=== PATIENT | female | born 1990 | race Caucasian/White ===

== ENCOUNTER 2025-02-10 13:14 | Outpatient (AMB) | payer MEDICAID, SELFPAY ==
[2025-02-10 13:39] VITALS: BP 111/70; PULSE 84; RESP 18; TEMP 36.6; O2SAT 98
--- NOTE | 2025-02-10 13:39 | OBCLNT_ITS ---
Vital Signs 02/10/25 13:39 Weight 59.08 kg Weight Measurement Method Standing Scale BP 111/70 Blood Pressure Source Automatic Cuff Blood Pressure Location Left Upper Arm Position Sitting Respiration 18 Pulse 84 Pulse Source Monitor Temp 97.8 F Temp Source Temporal Artery Scan Pulse Oximetry (%) 98 Oxygen Delivery Method Room Air Allergies/Home Meds Allergies & Medications Allergies No Known Allergies Allergy (Verified 02/10/25 13:40) Medication Reconciliation vits no.126-ferrous fum 28 mg iron-folic acid 800 mcg tablet (Classic ) tab PO 02/10/25 [History Confirmed 02/10/25] Intake Visit Data Collection New Patient or Established: New Patient (never been to [facility]) 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 1. Little interest or pleasure in doing things: more than half the days 2. Feeling down, depressed, or hopeless: more than half the days Total score: 4 PHQ-9 3. Trouble falling or staying asleep, or sleeping too much: Several days 4. Feeling tired or having little energy: Several days 5. Poor appetite or overeating: More than one-half days 6. Feeling bad about yourself - or that you are a failure or have let yourself or your family down: Not at all 7. Trouble concentrating on things, such as reading the newspaper or watching television: Several days 8. Moving or speaking so slowly that other people could have noticed? - Or the opposite - being so fidgety or restless that you have been moving around a lot more than usual: not at all 9. Thoughts that you would be better off or of hurting yourself in some way: Not at all Total score: 9.0 If you checked off any problems, how difficult have these problems made it for you to do your work, take care of things at home, or get along with other people?: somewhat difficult Source: Developed by Drs. Rosalio Mcdowell, Kailee Bruner, Hima Nath and colleagues, with an educational susan from [employer]. Depression screen completed yes Social History Living Situation History Marital Status: Single Lives With: Children Housing: House Tobacco History Smoking Status: Never smoker Alcohol History Alcohol Intake: Former Alcohol Intake Frequency: holidays/special occasions only Domestic Abuse History Do You Feel Safe at Home: Yes Past Medical History Past Medical History Have you ever been diagnosed with any of the following: History of Present Illness HPI Narrative 35-year-old 5 para 2 termination 2 for OB initial. Patient's last period was November 16, 2024. Her menses are every month x 5 days and she has sure dates. This gives due date August 21, 2025. Patient has a new partner and they are both happy about the . Patient has a previous history of syphilis that was treated. History of THC use. Patient has a history of anxiety. She was being treated with Zoloft 25 mg daily. However when she had a positive test she stopped the Zoloft. Patient is seen [facility]. And she has a follow-up appointment with her in a week. Patient also was given a referral to psych in [place]. Patient is a previous x 1 with her first baby for distress. She then had a successful after that. And she has had her tonsils removed. No problems with her last 2 pregnancies. Denies any SAB complaints. Patient is currently taking vitamins and vitamin B6 OB Initial Visit OB Flowsheet OB Flowsheet Initial Weight: Not Recorded Date -?-?-?-?-?-?-?-?-?-?-?-?- EGA Weight Edema CTX Effacement BP Fundal ht Pres Dilation Effacement Station Visit Note Alb Glu FHR Mov 02/10/25 -?-?-?-?-?-?-?-?-?-?-?-?- 12w 2d 59.08 kg absent absent 111/70 12 35-year-old 5 para 2 at 12 weeks 4 days here for initial OB I. Patient would like tubal ligation. She also has a history of a . I discussed with her that VBACs are not currently being done at [facility]. I also discussed repeat with tubal ligation as an option. SAB precautions were discussed. Continue to take vitamins. Practice safe sex. Patient will follow-up with her behavioral health specialist and keep referral to psychology. NIPT, carrier screens today. Referral to [facility] for anatomy scan and evaluation previous C- section scar and placenta. Discussed diet and weight gain. Return in 4 weeks for OB check 145 abse nt Menstrual History Menstrual reliability: definite Flow: normal Menstrual regularity: regular Monthly: Yes Age at menarche: 15 Date of positive home test: 12/05/24 OB History : 5 Para: 2 Hx # Pregnancies: 0 Hx Total # of Abortions (Spontaneous & Elective): 2 # of Living Children: 2 Delivery History 1st : Child's name: Ang date: 03/08/13 sex: male Gestational age at delivery (weeks): 39 Delivery type: weight (lbs): 7000 g 2nd : Child's name: Abdiaziz date: 09/12/16 sex: male Gestational age at delivery (weeks): 38 Delivery type: vaginal weight (lbs): 8000 g Infection History & Risk Evaluation History of STDs: syphilis (2013, treated ) HIV risk evaluation: low risk Hepatitis B risk evaluation: low risk Patient or partner has history of Genital Herpes: No Varicella/chicken pox status: immunized Genetic Screening & History Genetic Screening/Teratology Counseling - Includes patient, baby's father, or anyone in either family with: 1. Patient's age 35 years or older as of estimated date of delivery: No 2. Thalassemia (Cypriot, Solomon Islander, Mediterranean, or Background); MCV less than 80: No 3. Neural Tube Defect (Meningomyelocele, Spina Bifida, or Anencephaly): No 4. Congenital Heart Defect: No 5. Down Syndrome: No 6. Branden-Sachs (Ashkenazi Confucianism, Cajun, Armenian [place]): No 7. Kathi Disease (Ashkenazi Confucianism): No 8. Familial Dysautonomia (Ashkenazi Confucianism): No 9. Sickle Cell Disease or Trait (): No 10. Hemophilia or other blood disorders: No 11. Muscular Dystrophy: No 12. Cystic Fibrosis: No 13. [place]'s Chorea: No 14. Mental Retardation/Autism: No 15. Other inherited genetic or chromosomal disorder: No 16. Maternal Metabolic Disorder (EG,TYPE 1 Diabetes, PKU): No 17. Patient or baby's father had a child with defects not listed above: No 18. Recurrent loss or a stillbirth: No 19. Medications (including supplements, vitamins, herbs or otc drugs)/illicit/recreational drugs/alcohol since last menstrual period: No 20. Any other: No Infection History 1. Live with someone with TB or exposed to TB: No 2. Rash or viral illness since last menstrual period: No 3. Hepatitis B,C: No 4. History of STD: chlamydia (2013) Other (see comments) Source: [employer] Review of Systems Review of Systems Systems Reviewed: All systems reviewed, normal except as documented Exam General Limitations: no limitations General Appearance: alert, in no apparent distress, comfortable, cooperative, healthy appearing, well developed and well groomed Head Head exam: atraumatic, normocephalic and normal inspection Chest Chest inspection: Present normal inspection and symmetric chest wall rise Resp Respiratory exam: Present normal lung sounds bilaterally Card Cardiovascular exam: Present regular rate, normal rhythm and normal heart sounds Abdominal Abdominal exam: Present soft and normal bowel sounds Psych Psychiatric exam: Present normal affect and normal mood Assessment & Plan Diagnosis / Problem List (1) Encounter for supervision of normal first , first trimester: Status: Acute Plan Schedule anatomy scan with maternal- medicine. Continue vitamins. Order OB panel. NIPT, carrier screens were ordered today. SAB precautions discussed with patient increase fluids. Advised patient to keep her follow-up appointment with behavioral health. And return in 4 weeks for OB check Additional Plan Follow Up: 4 Weeks (obc 4 week) Office Procedures OB Clinic LOC & Office Proc's Nursing/Assessment Patient Status: Established Patient OB Clinic Nursing Assessment: Medication Reconciliation, Update PMH in EMR and Vital Signs OB Clinic Coordination of Care: Complex Care and Chronic Disease 1-5, Education Complex Pt/Fam, Consent,records obtained, informed consent, Results/Orders obtained and Staff clarify orders Established Patient Charge Established Patient Point Assignment: 95 Established Patient Point Charge: EP Level 3 (80-115)
== END 2025-02-10 14:15 | disposition home or self-care (01) ==
LOC: HODSOBC 13:14
PROVIDERS: Supervising Provider Advanced Practice Midwife; Visit Provider Advanced Practice Midwife
DX: O09.291 Supervision of pregnancy with other poor reproductive or obstetric history, first trimester (principal); O34.219 Maternal care for unspecified type scar from previous cesarean delivery; Z3A.12 12 weeks gestation of pregnancy; Z87.59 Personal history of other complications of pregnancy, childbirth and the puerperium
CPT/HCPCS: 99213; G0463

== ENCOUNTER 2025-02-25 10:09 | Outpatient (AMB) | payer MEDICAID, SELFPAY ==
--- NOTE | 2025-02-25 10:34 | AMB.GYNCLNOT ---
Vital Signs 02/25/25 10:35 Height 1.57 m Height Method Stated Weight 59.591 kg Weight Measurement Method Standing Scale BMI 24.0 BP 103/72 Blood Pressure Source Automatic Cuff Blood Pressure Location Left Upper Arm Position Sitting Respiration 16 Pulse 87 Pulse Source Monitor Temp 97.1 F Temp Source Oral Pulse Oximetry (%) 98 Oxygen Delivery Method Room Air Allergies/Home Meds Allergies & Medications Allergies No Known Allergies Allergy (Verified 02/25/25 10:37) Medication Reconciliation vits no.126-ferrous fum 28 mg iron-folic acid 800 mcg tablet (Classic ) tab PO 02/10/25 [History Confirmed 02/25/25] Intake Visit Data Collection New Patient or Established: Established Patient (seen at [facility] within 3 years) Reason for Visit:: LAB RESULTS Seen by Clinical Staff ONLY (RN/MA): No Senior Quantity Surveyor Required: No Do You Feel Safe at Home: Yes Authorities Contacted: N/A PCP or OBGYN visit in last 3 months: Yes Hx Now: Yes Are you currently on any form of Control: No Last menstrual period: 11/16/24 Pain Present Currently: No Pain Scale Used: Cota-Nicole/Numerical Pain scale:: 0 Smoking Status Smoking Status: Never smoker 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 1. Little interest or pleasure in doing things: more than half the days 2. Feeling down, depressed, or hopeless: not at all Total score: 2 PHQ-9 3. Trouble falling or staying asleep, or sleeping too much: Not at all 4. Feeling tired or having little energy: Not at all 5. Poor appetite or overeating: Not at all 6. Feeling bad about yourself - or that you are a failure or have let yourself or your family down: Not at all 7. Trouble concentrating on things, such as reading the newspaper or watching television: Not at all 8. Moving or speaking so slowly that other people could have noticed? - Or the opposite - being so fidgety or restless that you have been moving around a lot more than usual: not at all 9. Thoughts that you would be better off or of hurting yourself in some way: Not at all Total score: 2 If you checked off any problems, how difficult have these problems made it for you to do your work, take care of things at home, or get along with other people?: not difficult at all Source: Developed by Drs. Rosalio Mcdowell, Kailee Bruner, Hima Nath and colleagues, with an educational susan from [employer]. Depression screen completed yes Social History Living Situation History Lives With: Children Housing: House Tobacco History Smoking Status: Never smoker Alcohol History Alcohol Intake: Former Alcohol Intake Frequency: holidays/special occasions only Domestic Abuse History Do You Feel Safe at Home: Yes Past Medical History Past Medical History Have you ever been diagnosed with any of the following: History of Present Illness HPI Narrative 35 yo for lab results. previous c/s x1, wants . Patient is here for lab results. Previous history of syphilis. treated with last 2 with bicillin 2.4. New partner. poor compliance with consom. No SaB complaints. compliant with PNV. LMP 11/16/24. EDC 08/21/25. No SAB complaints. patient states Health dept has contacted her as f/u. patient is very tearful regarding difficulty in getting care. She lives in [place] and has car trouble Review of Systems Review of Systems Systems Reviewed: All systems reviewed, normal except as documented Exam Narrative Physical exam: FH: 14, FHT 145 General Limitations: no limitations General Appearance: alert, in no apparent distress, comfortable, cooperative, healthy appearing, well developed and well groomed Head Head exam: atraumatic, normocephalic and normal inspection Card Cardiovascular exam: Present regular rate, normal rhythm and normal heart sounds Abdominal Abdominal exam: Present soft and normal bowel sounds Skin Skin exam: Present warm, dry, intact and normal color Results Objective Laboratory: RPR: reactive, titer: 1:1, TPA+ Assessment & Plan Diagnosis / Problem List (1) Encounter for supervision of normal first , first trimester: Status: Acute (2) Previous section: Status: Acute (3) Syphilis, unspecified: Status: Acute Plan: discussed lab results. previous history, treated Plan repeat RPR with 28 week labs, safe sex, continue PNV, MFM appointment pending. sab precaution. rtc 5 week. consult with OB regarding. no treatment now, patient was treated Additional Plan Follow Up: 5 Weeks (obc) Office Procedures OB Clinic LOC & Office Proc's Nursing/Assessment Patient Status: Established Patient OB Clinic Nursing Assessment: Medication Reconciliation, Update PMH in EMR and Vital Signs OB Clinic Coordination of Care: Complex Care and Chronic Disease 1-5, Consent,records obtained, informed consent, Education Simp Pt/Fam, Results/Orders obtained and Staff clarify orders Established Patient Charge Established Patient Point Assignment: 90 Established Patient Point Charge: EP Level 3 (80-115)
[2025-02-25 10:35] VITALS: BP 103/72; PULSE 87; RESP 16; TEMP 36.2; O2SAT 98; BMI 24.0
== END 2025-02-25 11:20 | disposition home or self-care (01) ==
LOC: HODSOBC 10:09
PROVIDERS: PCP Advanced Practice Midwife; Referring Provider Advanced Practice Midwife; Supervising Provider Advanced Practice Midwife; Visit Provider Advanced Practice Midwife
DX: O09.291 Supervision of pregnancy with other poor reproductive or obstetric history, first trimester (principal); O09.891 Supervision of other high risk pregnancies, first trimester; Z3A.00 Weeks of gestation of pregnancy not specified; O34.219 Maternal care for unspecified type scar from previous cesarean delivery; O98.111 Syphilis complicating pregnancy, first trimester; A53.9 Syphilis, unspecified
CPT/HCPCS: 99213; G0463

== ENCOUNTER 2025-04-01 10:45 | Outpatient (AMB) | payer MEDICAID, SELFPAY ==
[2025-04-01 11:01] VITALS: BP 103/68; PULSE 85; RESP 15; TEMP 36.6; O2SAT 96; BMI 24.3
--- NOTE | 2025-04-01 11:01 | AMB.OBVISIT ---
Vital Signs 04/01/25 11:01 Height 1.57 m Height Method Stated Weight 59.874 kg Weight Measurement Method Standing Scale BMI 24.3 BP 103/68 Blood Pressure Source Automatic Cuff Blood Pressure Location Right Upper Arm Position Sitting Respiration 15 Pulse 85 Pulse Source Monitor Temp 97.8 F Temp Source Oral Pulse Oximetry (%) 96 Oxygen Delivery Method Room Air Allergies/Home Meds Allergies & Medications Allergies No Known Allergies Allergy (Verified 04/01/25 11:02) Medication Reconciliation vits no.126-ferrous fum 28 mg iron-folic acid 800 mcg tablet (Classic ) tab PO 02/10/25 [History Confirmed 04/01/25] Intake Visit Data Collection New Patient or Established: Established Patient (seen at [facility] within 3 years) Reason for Visit:: CARE Seen by Clinical Staff ONLY (RN/MA): No Stonecutter Required: No Do You Feel Safe at Home: Yes Authorities Contacted: N/A PCP or OBGYN visit in last 3 months: Yes Hx Now: Yes Are you currently on any form of Control: No Pain Present Currently: No Pain Scale Used: Cota-Nicole/Numerical Pain scale:: 0 Smoking Status Smoking Status: Never smoker Questionnaires Covid-19 Vaccine Questionnaire Has patient been vacinated for Covid-19 Have you been vacinated for Covid-19: Yes PHQ-9 PHQ-2 Over the last 2 weeks, how often have you been bothered by any of the following problems? 1. Little interest or pleasure in doing things: not at all 2. Feeling down, depressed, or hopeless: not at all Total score: 0 PHQ-9 3. Trouble falling or staying asleep, or sleeping too much: Not at all 4. Feeling tired or having little energy: Not at all 5. Poor appetite or overeating: Not at all 6. Feeling bad about yourself - or that you are a failure or have let yourself or your family down: Not at all 7. Trouble concentrating on things, such as reading the newspaper or watching television: Not at all 8. Moving or speaking so slowly that other people could have noticed? - Or the opposite - being so fidgety or restless that you have been moving around a lot more than usual: not at all 9. Thoughts that you would be better off or of hurting yourself in some way: Not at all Total score: 0 Source: Developed by Drs. Rosalio Mcdowell, Kailee Bruner, Hima Nath and colleagues, with an educational susan from [employer]. Depression screen completed yes Social History Living Situation History Lives With: Children Housing: House Tobacco History Smoking Status: Never smoker Alcohol History Alcohol Intake: Former Alcohol Intake Frequency: holidays/special occasions only Domestic Abuse History Do You Feel Safe at Home: Yes Care OB Visit Log OB Flowsheet Initial Weight: Not Recorded Date <del>?</del> EGA Weight BP Alb Glu CTX Pres Fundal ht FHR Mov Dilation Station Effacement Hx Notes Visit Note 02/10/25 <del>?</del> 12w 2d 59.08 kg 111/70 absent 12 145 absent 35-year-old 5 para 2 at 12 weeks 4 days here for initial OB I. Patient would like tubal ligation. She also has a history of a . I discussed with her that VBACs are not currently being done at [facility]. I also discussed repeat with tubal ligation as an option. SAB precautions were discussed. Continue to take vitamins. Practice safe sex. Patient will follow-up with her behavioral health specialist and keep referral to psychology. NIPT, carrier screens today. Referral to [facility] for anatomy scan and evaluation previous scar and placenta. Discussed diet and weight gain. Return in 4 weeks for OB check 04/01/25 <del>?</del> 19w 3d 59.874 kg 103/68 absent unknown 19 156 active +fm, no sab complaints, no bleeding, no c/o nausea. mfm scan 04/16 discuss labs, gave results. keep mfm appointment for 04/16. discuss ptl precaution and danger s/s rtc 4 week VIOLA Calculator Estimated Delivery Date Method Current WG Current Estimate 08/23/25 LMP (Certain) 19w 3d Notes Visit Date: 04/01/25 Last Updated by: Rosario Garcia, LIVE 35 yo lmp 11/16/24. edc 08/23/25, RPR::reactive, titer 1;1, TPA+. prev hx and treated. A+,abs-,rub ni, hbsag-,hiv-,hc-, gc/ct-, NIPT-, CF-,SMA- Office Procedures OB Clinic LOC & Office Proc's Nursing/Assessment Patient Status: Established Patient OB Clinic Nursing Assessment: Medication Reconciliation, Update PMH in EMR and Vital Signs OB Clinic Coordination of Care: Complex Care and Chronic Disease 1-5, Consent,records obtained, informed consent, Education Simp Pt/Fam, Lab and Imaging orders, Results/Orders obtained and Staff clarify orders Special Needs: Heart tones Established Patient Charge Established Patient Point Assignment: 135 Established Patient Point Charge: EP Level 4 (120-155) Assessment & Plan Diagnosis / Problem List (1) Encounter for supervision of other normal , second trimester: Status: Acute Plan discuss ptl precaution, keep mfm appointment on 04/16, continue PNV, increase fluid.rtc 4 week. obc Additional Plan Follow Up: 4 Weeks (obc)
== END 2025-04-01 11:23 | disposition home or self-care (01) ==
LOC: HODSOBC 10:45
PROVIDERS: PCP Advanced Practice Midwife; Referring Provider Advanced Practice Midwife; Supervising Provider Advanced Practice Midwife; Visit Provider Advanced Practice Midwife
DX: O09.292 Supervision of pregnancy with other poor reproductive or obstetric history, second trimester (principal); Z3A.19 19 weeks gestation of pregnancy; O34.219 Maternal care for unspecified type scar from previous cesarean delivery
CPT/HCPCS: 99214; G0463

== ENCOUNTER 2025-05-05 11:09 | Outpatient (AMB) | payer MEDICAID, SELFPAY ==
[2025-05-05 11:49] VITALS: BP 105/69; PULSE 67; RESP 17; TEMP 36.5; O2SAT 98; BMI 24.2
--- NOTE | 2025-05-05 11:49 | OBCLNT_ITS ---
Vital Signs 05/05/25 11:49 Height 1.57 m Height Method Stated Weight 59.647 kg Weight Measurement Method Standing Scale BMI 24.2 BP 105/69 Blood Pressure Source Automatic Cuff Blood Pressure Location Right Upper Arm Position Sitting Respiration 17 Pulse 67 Pulse Source Monitor Temp 97.7 F Temp Source Temporal Artery Scan Pulse Oximetry (%) 98 Oxygen Delivery Method Room Air Allergies/Home Meds Allergies & Medications Allergies No Known Allergies Allergy (Verified 05/05/25 11:50) Medication Reconciliation vits no.126-ferrous fum 28 mg iron-folic acid 800 mcg tablet (Classic ) tab PO 02/10/25 [History Confirmed 05/05/25] Intake Visit Data Collection New Patient or Established: Established Patient (seen at [facility] within 3 years) Reason for Visit:: OBC Seen by Clinical Staff ONLY (RN/MA): No Candy Bar Attendant Required: No Do You Feel Safe at Home: Yes Authorities Contacted: N/A PCP or OBGYN visit in last 3 months: Yes Date of Last PCP or OBGYN visit: 04/01/25 Hx Now: Yes Are you currently on any form of Control: No Pain Present Currently: No Pain Scale Used: Cota-Nicole/Numerical Pain scale:: 0 Smoking Status Smoking Status: Never smoker Questionnaires Covid-19 Vaccine Questionnaire Has patient been vacinated for Covid-19 Have you been vacinated for Covid-19: Yes PHQ-9 PHQ-2 Over the last 2 weeks, how often have you been bothered by any of the following problems? 1. Little interest or pleasure in doing things: not at all 2. Feeling down, depressed, or hopeless: not at all Total score: 0 PHQ-9 3. Trouble falling or staying asleep, or sleeping too much: Not at all 4. Feeling tired or having little energy: Not at all 5. Poor appetite or overeating: Not at all 6. Feeling bad about yourself - or that you are a failure or have let yourself or your family down: Not at all 7. Trouble concentrating on things, such as reading the newspaper or watching television: Not at all 8. Moving or speaking so slowly that other people could have noticed? - Or the opposite - being so fidgety or restless that you have been moving around a lot more than usual: not at all 9. Thoughts that you would be better off or of hurting yourself in some way: Not at all Total score: 0 If you checked off any problems, how difficult have these problems made it for you to do your work, take care of things at home, or get along with other people?: not difficult at all Source: Developed by Drs. Rosalio Mcdowell, Kailee Bruner, Hima Nath and colleagues, with an educational susan from [employer]. Depression screen completed yes Social History Living Situation History Marital Status: Life Partner Lives With: Children Housing: House Tobacco History Smoking Status: Never smoker Second Hand Smoke Exposure: No Alcohol History Alcohol Intake: Former Alcohol Intake Frequency: holidays/special occasions only Domestic Abuse History Do You Feel Safe at Home: Yes Care OB Visit Log OB Flowsheet Initial Weight: Not Recorded Date -?-?-?-?-?-?-?-?-?-?-?-?- EGA Weight BP Alb Glu CTX Pres Fundal ht FHR Mov Dilation Station Effacement Hx Notes Visit Note 02/10/25 -?-?-?-?-?-?-?-?-?-?-?-?- 12w 2d 59.08 kg 111/70 absent 12 145 abs ent 35-year-old 5 para 2 at 12 weeks 4 days here for initial OB I. Patient would like tubal ligation. She also has a history of a . I discussed with her that VBACs are not currently being done at [facility]. I also discussed repeat with tubal ligation as an option. SAB precautions were discussed. Continue to take vitamins. Practice safe sex. Patient will follow-up with her behavioral health specialist and keep referral to psychology. NIPT, carrier screens today. Referral to [facility] for anatomy scan and evaluation previous C- section scar and placenta. Discussed diet and weight gain. Return in 4 weeks for OB check 04/01/25 -?-?-?-?-?-?-?-?-?-?-?-?- 19w 3d 59.874 kg 103/68 absent unknown 19 156 active +fm, no sab complaints, no bleeding, no c/o nausea. mfm scan 04/16 discuss labs, gave results. keep mfm appointment for 04/16. discuss ptl precaution and danger s/s rtc 4 week 05/05/25 -?-?-?-?-?-?-?-?-?-?-?-?- 24w 2d 59.647 kg 105/69 absent unknown 24 145 active no OB complaints. fetus active no OB complaints. fetus acti ve. patient plans on . c/s x1 with . wants BTL. f/u MFM 6 week discuss ,advised to seek care at [facility]. discuss PTL precaution and ER precaution, 3rd tri lab, RPR today. BTL consent NV, continue pnv, hydrate. ptl precaution VIOLA Calculator Estimated Delivery Date Method Current WG Current Estimate 08/23/25 LMP (Certain) 24w 2d Notes Visit Date: 04/01/25 Last Updated by: Rosario Garcia, LIVE 35 yo lmp 11/16/24. edc 08/23/25, RPR::reactive, titer 1;1, TPA+. prev hx and treated. A+,abs-,rub ni, hbsag-,hiv-,hc-, gc/ct-, NIPT-, CF-,SMA- Office Procedures OB Clinic LOC & Office Proc's Nursing/Assessment Patient Status: Established Patient OB Clinic Nursing Assessment: Medication Reconciliation, Update PMH in EMR and Vital Signs OB Clinic Coordination of Care: Complex Care and Chronic Disease 1-5, Consent,records obtained, informed consent, Education Simp Pt/Fam and Staff clarify orders Special Needs: Heart tones Established Patient Charge Established Patient Point Assignment: 115 Established Patient Point Charge: EP Level 3 (80-115) Assessment & Plan Diagnosis / Problem List (1) Encounter for supervision of other normal , second trimester: Status: Acute (2) Previous section: Status: Acute Plan tubal consent NV, discuss repeat c/s vs , advised to seek care at [facility]. 3rd tri lab with RPR today. continue PNV. discuss ptl precaution. rtc 4 week Additional Plan Follow Up: 4 Weeks (obc)
== END 2025-05-05 12:01 | disposition home or self-care (01) ==
LOC: HODSOBC 11:09
PROVIDERS: PCP Advanced Practice Midwife; Referring Provider Advanced Practice Midwife; Supervising Provider Advanced Practice Midwife; Visit Provider Advanced Practice Midwife
DX: O09.292 Supervision of pregnancy with other poor reproductive or obstetric history, second trimester (principal); O34.219 Maternal care for unspecified type scar from previous cesarean delivery; Z3A.24 24 weeks gestation of pregnancy
CPT/HCPCS: 99213; G0463